=== PATIENT | female | born 1940 | race African-American/Black ===

== ENCOUNTER 2016-11-22 04:18 | Inpatient (IN) | payer MEDICARE, MEDICAID ==
[2016-11-22] MEDS ORDERED: ACETAMINOPHEN SOLN 325 MG/10.15 ML UDCUP PO ONE (05:26)
[2016-11-22 05:30] LABS: AMORPHOUS SEDIMENT,URINE TRACE /HPF; APPEARANCE,URINE CLOUDY; BILIRUBIN,URINE NEGATIVE (NEGATIVE); GLUCOSE, URINE NEGATIVE (NEGATIVE); KETONES,URINE TRACE mg/dL (NEGATIVE); LEUKOCYTE ESTERASE,URINE NEGATIVE (NEGATIVE); NITRITE,URINE NEGATIVE (NEGATIVE); PROTEIN,URINE 30 mg/dL (NEGATIVE); URINE SPECIFIC GRAVITY 1.028
[2016-11-22 05:34] LABS: ABSOLUTE BASOPHILS # (AUTO) 0.1 10^3/uL (0.0-0.2); ABSOLUTE EOSINOPHILS # (AUTO) 0.1 10^3/uL (0.0-0.6); ABSOLUTE LYMPHOCYTES (AUTO) 3.7 10^3/uL (0.5-4.7); ABSOLUTE MONOCYTES (AUTO) 0.8 10^3/uL (0.1-1.4); ABSOLUTE NEUT (AUTO) 3.8 10^3/uL (1.7-8.2); BASOPHILS % (AUTO) 1.2 % (0-2); EOSINOPHILS % (AUTO) 0.7 % (0-6); HEMATOCRIT 48.5 % (36.0-47.0); HEMOGLOBIN 15.8 g/dL (12.0-15.5); HGB HCT DIFFERENCE -1.1; LYMPHOCYTES % (AUTO) 43.9 % (13-45); MEAN CORPUSCULAR HEMOGLOBIN 30.2 pg (27.0-33.4); MEAN CORPUSCULAR HGB CONC 32.5 g/dL (32.0-36.0); MEAN CORPUSCULAR VOLUME 93 fl (80-97); RED BLOOD COUNT 5.21 10^6/uL (3.72-5.28); RED CELL DISTRIBUTION WIDTH 13.9 % (11.5-14.0); SEGMENTED NEUTROPHILS % (AUTO) 44.2 % (42-78); WHITE BLOOD COUNT 8.5 10^3/uL (4.0-10.5)
[2016-11-22] MEDS ORDERED: VANCOMYCIN HCL INJ 1000 MG VIAL IV ONE (05:36)
[2016-11-22] MEDS ORDERED: NORMAL SALINE 1000 ML 1,000 ML IV ONE (05:36)
[2016-11-22] MEDS ORDERED: LEVOFLOXACIN 750 MG/D5W RTU 150 ML IV ONE (05:36)
--- NOTE | 2016-11-22 05:41 | ER Document Report ---
Doctor's Note Notes: 11/22/16 05:37 I performed a quick triage evaluation of the patient. Patient is a 76-year-old female who presents with fever. Daughter is at bedside. Patient says correction. Daughter says the patient was sinus UTI several days ago. According to the correction paperwork she is on Cipro and a cephalosporin. Daughter says that she's been more swollen than usual. She start having fevers yesterday. Fever became worse today just are becoming tachycardic and therefore they sent her to the ER. Daughter denies any previous history of decubitus ulcers. Daughter says she does not speak at baseline. She has severe dementia. She is a DO NOT RESUSCITATE. She does have feeding tube. No other complaints at this time. On exam patient is very dry appearing. Septic appearing. She is tachycardic. I will initiate septic workup. I will start her off on vancomycin and Levaquin until source of fever becomes more obvious. I will give her IV bolus of normal saline. We will do a neck check. She's been given Tylenol for fever. Dictation of this chart was performed using voice recognition software; therefore, there may be some unintended grammatical errors. 11/22/16 05:40
--- NOTE | 2016-11-22 06:35 | ER Document Report ---
ED Fever - General Chief Complaint: Fever Stated Complaint: RESPIRATORY DISTRESS Mode of Arrival: Medic Information source: Relative Cannot obtain history due to: Dementia Notes: This is a 76-year-old female resident of retirement who was brought by EMS for fever. History is obtained from the daughter. Patient has a history of end -stage dementia and is nonverbal. Daughter states that she has been treated for a UTI for the past few days with Cipro and a cephalosporin. Fever increased today and patient was noted to be tachypneic. She was evaluated initially by the night ER provider Dr. Mandujano and a septic workup was begun as well as IV fluids and IV antibiotics. The daughter is understanding that the patient is seriously ill, and the daughter does confirm that the patient is a DO NOT RESUSCITATE. TRAVEL OUTSIDE OF THE [place] IN LAST 30 DAYS: No - Related Data Allergies/Adverse Reactions: Penicillins Allergy (Verified 11/22/16 05:07) Home Medications: Current Home Medications Acetaminophen [Tylenol 650 mg Supp] 650 mg WI Q4HP PRN 11/22/16 [History] Albuterol Sulfate [Ventolin 0.083% Neb 2.5 mg/3 ml Ampul] 1 vial NEB Q8HP PRN [History] Bisacodyl [Dulcolax 10 mg Supp.rect] 10 mg WI DAILYP PRN 11/22/16 [History] Brimonidine Tartrate [Alphagan P] 1 drop OU BID 11/22/16 [History] Cefuroxime Axetil [Ceftin 500 mg Tablet] 1 tab PEG BID 11/22/16 [History] Diabetasource 40 ml PEG Q1H 11/22/16 [History] Insulin Lispro [Humalog Insulin 100 Unit/1 ml 3 ml Vial] 0 unit SUBCUT .SLD SCALE 11/22/16 [History] Ipratropium/Albuterol Sulfate [Duoneb 3 ml Ampul] 3 ml NEB RTQ4HP PRN 11/22/16 [ History] Magnesium Hydroxide [Milk of Magnesia 30 ml Udcup] 30 ml PEG PRN PRN 11/22/16 [ History] Metformin HCl [Glucophage] 500 mg PEG QAM 11/22/16 [History] Na Phos,M-B/Na Phos,Di-Ba [Fleet Enema (Adult) 133 ml] 1 applic WI DAILYP PRN [History] Olopatadine HCl [Pataday] 1 drop OS DAILY 11/22/16 [History] Past Medical History - General Information source: Relative, Emergency Med Personnel Cannot obtain history due to: Dementia - Social History Smoking Status: Unknown if Ever Smoked Chew tobacco use (# tins/day): No Frequency of alcohol use: None Drug Abuse: None Family History: Reviewed & Not Pertinent Patient has suicidal ideation: No Patient has homicidal ideation: No - Past Medical History Cardiac Medical History: Reports: Hx Coronary Artery Disease, Hx Hypercholesterolemia, Hx Hypertension Endocrine Medical History: Reports: Hx Diabetes Mellitus Type 2 Renal/ Medical History: Denies: Hx Peritoneal Dialysis Past Surgical History: Reports: Hx Abdominal Surgery - PEG, Hx Cardiac Catheterization - Open heart surgery (quadruple bypass), Hx Coronary Artery Bypass Graft - Immunizations Hx Diphtheria, Pertussis, Tetanus Vaccination: Yes Review of Systems - Review of Systems -: Yes ROS unobtainable due to patient's medical condition Physical Exam - Vital signs Vitals: Pulse Ox 100 11/22/16 04:25 - Notes Notes: PHYSICAL EXAMINATION: GENERAL: ill appearing elderly female, tachypneic, responsive only to sternal rub, nonverbal at baseline HEAD: Atraumatic, normocephalic. EYES: Pupils equal round and sluggishly reactive to light ENT: nares patent, oropharynx clear without exudates. Mucous membranes dry NECK: no lymphadenopathy LUNGS: Breath sounds clear to auscultation bilaterally and equal. No wheezes rales or rhonchi. HEART: Tachycardic, regular rate, no murmur appreciated ABDOMEN: Soft, nontender, normoactive bowel sounds. No guarding, no rebound. No masses appreciated. PEG tube site clean dry and intact. EXTREMITIES: 1+ bilateral lower extremity edema. NEUROLOGICAL: Patient is minimally responsive and unable to complete her neuro exam. There are no obvious focal deficits. SKIN: no rashes or lesions noted. Course - Re-evaluation Re-evalutation: 11/22/16 07:34 Lab results and chest x-ray results reviewed with daughter. We again discussed the fact that the patient is critically ill and septic. She is being treated with IV fluids and antibiotics, and we will admit to the hospitalist. Daughter understands grave prognosis and all questions are answered. - Vital Signs Vital signs: Temp Pulse Resp BP Pulse Ox 101.8 F H 116 H 0 L 132/66 H 100 11/22/16 07:20 11/22/16 04:53 11/22/16 06:48 11/22/16 06:48 11/22/16 06:48 - Laboratory Result Diagrams: 11/22/16 05:19 11/22/16 06:11 Laboratory results interpreted by me: 11/22/16 11/22/16 11/22/16 04:34 04:41 05:19 Hgb 15.8 H Hct 48.5 H Sodium Carbon Dioxide BUN Creatinine Glucose POC Glucose 226 H Lactic Acid AST Albumin Urine Protein 30 H Urine Ketones TRACE H Urine Urobilinogen 4.0 H Urine Ascorbic Acid 40 H 11/22/16 11/22/16 06:11 06:11 Hgb Hct Sodium 154.6 H Carbon Dioxide 39 H BUN 37 H Creatinine 0.41 L Glucose 225 H POC Glucose Lactic Acid 3.4 H AST 53 H Albumin 3.3 L Urine Protein Urine Ketones Urine Urobilinogen Urine Ascorbic Acid - Diagnostic Test Radiology reviewed: Image reviewed - No consolidation, Reports reviewed - EKG Interpretation by Me EKG shows normal: Sinus rhythm Rate: Tachycardia Additional EKG results interpreted by me: 11/22/16 07:36 Incomplete right bundle-branch block. No significant change from prior EKG Discharge - Discharge Clinical Impression: Elevated troponin level, DNR (do not resuscitate), Hypernatremia Sepsis Qualifiers: Sepsis type: sepsis due to unspecified organism Qualified Code(s): A41.9 - Sepsis, unspecified organism Condition: Critical Disposition: ADMITTED INPATIENT Admitting Provider: Hospitalist - Dr Green Unit Admitted: Medical Floor
[2016-11-22 06:48] LABS: ALANINE AMINOTRANSFERASE 25 U/L (9-52); ALBUMIN 3.3 g/dL (3.5-5.0); ALKALINE PHOSPHATASE 53 U/L (38-126); ASPARTATE AMINO TRANSFERASE 53 U/L (14-36); BILIRUBIN,TOTAL 0.9 mg/dL (0.2-1.3); BLOOD UREA NITROGEN 37 mg/dL (7-20); CALCIUM 9.7 mg/dL (8.4-10.2); CHLORIDE 104 mmol/L (98-107); CREATINE KINASE 39 U/L (30-135); CREATININE RESULT 0.41 mg/dL (0.52-1.25); GLUCOSE 225 mg/dL (75-110); POTASSIUM 3.6 mmol/L (3.6-5.0); SODIUM 154.6 mmol/L (137-145); TOTAL PROTEIN 7.9 g/dL (6.3-8.2)
[2016-11-22 07:01] LABS: ANION GAP 12 (5-19); CREATINE KINASE MB 0.71 ng/mL (<4.55)
[2016-11-22 07:03] LABS: CARBON DIOXIDE 39 mmol/L (22-30)
[2016-11-22 07:05] LABS: TROPONIN I 0.126 ng/mL
[2016-11-22] MEDS ORDERED: ACETAMINOPHEN 650 MG SUPP.RECT PR ONE (07:38)
[2016-11-22] MEDS ORDERED: 1/2 NORMAL SALINE 1,000 ML IV PRN (08:21)
[2016-11-22] MEDS ORDERED: IBUPROFEN 600 MG TABLET PEG ONE (08:22)
--- NOTE | 2016-11-22 08:33 | PDOC H&P ---
History of Present Illness Admission Date/PCP: AKHIL ULRICH Patient complains of: fever SOB History of Present Illness: BEV URBAN is a 76 year old female resident of [facility] who was brought by EMS for fever. History is obtained from the daughter. 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 Daughter states that she has been treated for a UTI for the past few days with Cipro and a cephalosporin. Fever increased today and patient was noted to be tachypneic. She was evaluated initially by the night ER provider Dr. Mandujano and a septic workup was begun as well as IV fluids and IV antibiotics. The daughter is understanding that the patient is seriously ill, and the daughter does confirm that the patient is a DO NOT RESUSCITATE. Upon evaluation in the ED patient was diagnosed urinary tract infection, severe dehydration, hypernatremia She had on 11/13 urine culture and sensitivity positive for Proteus mirabilis sensitive to cefotaxime Patient was subsequently admitted to telemetry unit under hospitalist service for further evaluation and care Past Medical History Cardiac Medical History: Reports: Coronary Artery Disease, Hyperlipidema, Hypertension Endocrine Medical History: Reports: Diabetes Mellitus Type 2 Past Surgical History Past Surgical History: Reports: Cardiac Catheterization - Open heart surgery ( quadruple bypass), Coronary Artery Bypass Graft Social History Smoking Status: Unknown if Ever Smoked Hx Recreational Drug Use: No Hx Prescription Drug Abuse: No - Advance Directive Resuscitation Status: Do Not Resuscitate Surrogate healthcare decision maker:: daughter Yumiko Family History Family History: Reviewed & Not Pertinent, Other - Health status sibling and parents unknown Parental Family History Reviewed: Yes Children Family History Reviewed: Yes Sibling(s) Family History Reviewed.: Yes Medication/Allergy Home Medications: Amlodipine Besylate [Norvasc 5 mg Tablet] 5 mg PEG DAILY 02/23/13 Ascorbic Acid [Vitamin C] 500 mg PEG BID 02/23/13 Aspirin [Aspirin 81 mg Chewable Tablet] 81 mg PEG DAILY 02/23/13 Timolol Maleate [Timoptic 0.5% Oph Soln 5 ml] 1 drop OU BID 06/13/15 Latanoprost 1 drop OU QHS 06/14/15 Insulin Detemir [Levemir Insulin 100 units/mL] 15 unit SUBCUT Q12 #0 insuln.pen 06/17/15 Polyethylene Glycol 3350 [Miralax Powder 17 gm/Packet] 17 gm PO DAILY #0 powd.pack 06/17/15 Acetaminophen [Tylenol 650 mg Supp] 650 mg PA Q4HP PRN 11/22/16 Albuterol Sulfate [Ventolin 0.083% Neb 2.5 mg/3 ml Ampul] 1 vial NEB Q8HP PRN Bisacodyl [Dulcolax 10 mg Supp.rect] 10 mg PA DAILYP PRN 11/22/16 Brimonidine Tartrate [Alphagan P] 1 drop OU BID 11/22/16 Cefuroxime Axetil [Ceftin 500 mg Tablet] 1 tab PEG BID 11/22/16 Diabetasource 40 ml PEG Q1H 11/22/16 Insulin Lispro [Humalog Insulin 100 Unit/1 ml 3 ml Vial] 0 unit SUBCUT .SLD SCALE 11/22/16 Ipratropium/Albuterol Sulfate [Duoneb 3 ml Ampul] 3 ml NEB RTQ4HP PRN 11/22/16 Magnesium Hydroxide [Milk of Magnesia 30 ml Udcup] 30 ml PEG PRN PRN 11/22/16 Metformin HCl [Glucophage] 500 mg PEG QAM 11/22/16 Na Phos,M-B/Na Phos,Di-Ba [Fleet Enema (Adult) 133 ml] 1 applic PA DAILYP PRN Olopatadine HCl [Pataday] 1 drop OS DAILY 11/22/16 Allergies/Adverse Reactions: Penicillins Allergy (Verified 11/22/16 05:07) Review of Systems ROS unobtainable: Due to mental status - Patient is obtunded and does not answer questions Daughter states that she has not been verbal now for 2-3 years Physical Exam Vital Signs: Temp Pulse Resp BP Pulse Ox 101.8 F H 116 H 0 L 132/66 H 100 11/22/16 07:20 11/22/16 04:53 11/22/16 06:48 11/22/16 06:48 11/22/16 06:48 Intake & Output 11/21/16 11/22/16 11/23/16 00:59 00:59 00:59 Weight 68.13 kg General appearance: PRESENT: mild distress, well-nourished Head exam: PRESENT: atraumatic, normocephalic Eye exam: PRESENT: conjunctiva pink, EOMI, PERRLA. ABSENT: scleral icterus Neck exam: ABSENT: carotid bruit, JVD, lymphadenopathy, thyromegaly Respiratory exam: PRESENT: decreased breath sounds, rhonchi. ABSENT: accessory muscle use Cardiovascular exam: PRESENT: RRR, tachycardia. ABSENT: diastolic murmur, systolic murmur Pulses: PRESENT: normal dorsalis pedis pul GI/Abdominal exam: PRESENT: normal bowel sounds, soft. ABSENT: distended, guarding, mass, organolmegaly, rebound, tenderness Extremities exam: PRESENT: full ROM. ABSENT: calf tenderness, clubbing, pedal edema Neurological exam: PRESENT: altered, other - Not responding to even deep painful stimuli Results Laboratory Results: 11/22/16 05:19 11/22/16 06:11 11/22/16 11/22/16 11/22/16 04:34 05:19 05:19 WBC 8.5 RBC 5.21 Hgb 15.8 H Hct 48.5 H MCV 93 MCH 30.2 MCHC 32.5 RDW 13.9 Plt Count 192 Seg Neutrophils % 44.2 Lymphocytes % 43.9 Monocytes % 10.0 Eosinophils % 0.7 Basophils % 1.2 Absolute Neutrophils 3.8 Absolute Lymphocytes 3.7 Absolute Monocytes 0.8 Absolute Eosinophils 0.1 Absolute Basophils 0.1 Sodium Cancelled Potassium Cancelled Chloride Cancelled Carbon Dioxide Cancelled Anion Gap Cancelled BUN Cancelled Creatinine Cancelled Est GFR ( Amer) Cancelled Est GFR (Non-Af Amer) Cancelled Glucose Cancelled Lactic Acid Calcium Cancelled Total Bilirubin Cancelled AST Cancelled ALT Cancelled Alkaline Phosphatase Cancelled Total Protein Cancelled Albumin Cancelled Urine Color YELLOW Urine Appearance CLOUDY Urine pH 5.0 Ur Specific [place] 1.028 Urine Protein 30 H Urine Glucose (UA) NEGATIVE Urine Ketones TRACE H Urine Blood NEGATIVE Urine Nitrite NEGATIVE Ur Leukocyte Esterase NEGATIVE Urine WBC (Auto) 1 Urine RBC (Auto) 0 11/22/16 11/22/16 06:11 06:11 WBC RBC Hgb Hct MCV MCH MCHC RDW Plt Count Seg Neutrophils % Lymphocytes % Monocytes % Eosinophils % Basophils % Absolute Neutrophils Absolute Lymphocytes Absolute Monocytes Absolute Eosinophils Absolute Basophils Sodium 154.6 H Potassium 3.6 Chloride 104 Carbon Dioxide 39 H Anion Gap 12 BUN 37 H Creatinine 0.41 L Est GFR ( Amer) > 60 Est GFR (Non-Af Amer) > 60 Glucose 225 H Lactic Acid 3.4 H Calcium 9.7 Total Bilirubin 0.9 AST 53 H ALT 25 Alkaline Phosphatase 53 Total Protein 7.9 Albumin 3.3 L Urine Color Urine Appearance Urine pH Ur Specific [place] Urine Protein Urine Glucose (UA) Urine Ketones Urine Blood Urine Nitrite Ur Leukocyte Esterase Urine WBC (Auto) Urine RBC (Auto) 11/22/16 11/22/16 11/22/16 05:19 05:19 06:11 Creatine Kinase Cancelled 39 CK-MB (CK-2) Cancelled Troponin I Cancelled 11/22/16 06:11 Creatine Kinase CK-MB (CK-2) 0.71 Troponin I 0.126 11/15/16 12:50 Urine Culture - Final Catheterized Urine Proteus Mirabilis Impressions: Chest X-Ray 11/22/16 04:51 IMPRESSION: NO ACUTE RADIOGRAPHIC FINDING IN THE CHEST. Assessment & Plan - Diagnosis (1) UTI (urinary tract infection) Is this a current diagnosis for this admission?: YesPlan: We will treat the patient with ceftaz at time which has the lowest NEISHA of 1 Fluid resuscitation continued Townsend catheter will be inserted (2) DNR (do not resuscitate) Is this a current diagnosis for this admission?: YesPlan: Patient's daughter wishes her mother to be treated aggressively But she is DNR/DNI (3) Sepsis Qualifiers: Sepsis type: sepsis due to unspecified organism Qualified Code(s): A41.9 - Sepsis, unspecified organism Is this a current diagnosis for this admission?: YesPlan: Septic secondary to UTI Treat with ceftazidime as above (5) Type II diabetes mellitus, uncontrolled Qualifiers: Diabetes mellitus complication status: with unspecified complications Is this a current diagnosis for this admission?: YesPlan: Will treat patient with his Accu-Chek before meals at bedtime and lispro coverage (6) Alzheimer's dementia Is this a current diagnosis for this admission?: YesPlan: . Advanced dementia Patient is nonverbal, bedridden incontinent, (7) G tube feedings Is this a current diagnosis for this admission?: YesPlan: We will be held today Resume in 24-48 hrs if patient's condition improved - Time Time Spent: 50 to 70 Minutes
[2016-11-22] MEDS ORDERED: DEXTROSE 40% GEL 15 GM TUBE PO PRN ×2 (08:41)
[2016-11-22] MEDS ORDERED: DEXTROSE 50%-WATER 25 GM/50 ML DISP.SYRIN IV PRN ×2 (08:41)
[2016-11-22] MEDS ORDERED: GLUCAGON,HUMAN RECOMB 1 MG INJ IM PRN (08:41)
[2016-11-22] MEDS ORDERED: CEFTAZIDIME PENTAHYDRATE 1 GM in DEXTROSE 5%-WATER 50 ML IV SCH (10:00)
--- NOTE | 2016-11-22 10:35 | EKG REPORT ---
SEVERITY:- ABNORMAL ECG - SINUS TACHYCARDIA MULTIPLE VENTRICULAR PREMATURE COMPLEXES IRBBB AND LPFB ST DEPRESSION, CONSIDER ISCHEMIA, ANT LEADS : Confirmed by: Jocelin Gonzalez 22-Nov-2016 10:34:33
--- NOTE | 2016-11-22 10:36 | Operative Report ---
Operative Report DATE OF SURGERY: 11/22/16 PREOPERATIVE DIAGNOSIS: Need for central vein access. POSTOPERATIVE DIAGNOSIS: Need for central vein access. OPERATION: Right internal jugular vein central venous line placement with ultrasound guidance SURGEON: RUSLAN PAULA ANESTHESIA: Local TISSUE REMOVED OR ALTERED: None COMPLICATIONS: None noted ESTIMATED BLOOD LOSS: minimal INTRAOPERATIVE FINDINGS: Right common carotid artery and right internal jugular vein in the normal position. Internal jugular vein was very flat even in the severe Trendelenburg indicating significant dehydration. PROCEDURE: Timeout was performed. The patient was prepped and draped in normal sterile fashion. Ultrasound was used to identify the right internal jugular vein and right common carotid artery. The skin over the vein was infiltrated with local anesthetic. An 11 blade scalpel was used to make a skin geovanni. Under ultrasound guidance, a Cook needle was used to cannulate the right internal jugular vein with return of nonpulsatile dark red venous blood. Initially the guidewire which comes in the 7 [place]oan triple-lumen central line kit was used and did not thread successfully. Then a 0.035 Glidewire was used which was successfully placed. Seldinger technique was used. The Cook needle was removed. The tract was dilated. Catheter was placed over the guidewire. The guidewire was removed. All lumens easily aspirated and flushed. The catheter was sewn in place at the skin and at the end hub. A Biopatch was placed. A sterile dressing was placed. All sharps were accounted for and disposed of properly. The patient tolerated the procedure well. A chest x-ray was performed which showed central venous line in the proper position and no pneumothorax.
[2016-11-22 17:04] LABS: PROTHROMBIN TIME 14.1 SEC (11.4-15.4)
[2016-11-22 17:14] LABS: ANION GAP 8 (5-19); BLOOD UREA NITROGEN 32 mg/dL (7-20); CALCIUM 8.6 mg/dL (8.4-10.2); CARBON DIOXIDE 39 mmol/L (22-30); CHLORIDE 104 mmol/L (98-107); CREATININE RESULT 0.48 mg/dL (0.52-1.25); GLUCOSE 178 mg/dL (75-110); SODIUM 150.5 mmol/L (137-145)
[2016-11-22 17:30] LABS: POTASSIUM 2.9 mmol/L (3.6-5.0)
[2016-11-22] MEDS ORDERED: NORMAL SALINE 1000 ML 1,000 ML IV PRN (17:37)
[2016-11-22] MEDS ORDERED: POTASSI CL 20 MEQ/50 ML RIDER 20 MEQ/50 ML RTUPB IV SCH (17:45)
[2016-11-22] MEDS ORDERED: POTASSI CL 20 MEQ/50 ML RIDER 20 MEQ/50 ML RTUPB IV ONE (18:37)
[2016-11-22] MEDS: PANTOPRAZOLE SODIUM 40 MG VIAL IV SCH ×2 (20:17→21:12)
[2016-11-22] MEDS: NORMAL SALINE 1000 ML 1,000 ML IV PRN (21:25)
[2016-11-22 21:37] LABS: VENOUS BLOOD BASE EXCESS 9.7 mmol/L; VENOUS BLOOD HCO3 37.4 mmol/L (20-32); VENOUS BLOOD PH 7.37 (7.30-7.42)
[2016-11-22 21:43] LABS: VENOUS BLOOD PCO2 66.4 mmHg (35-63)
[2016-11-22 21:58] LABS: ANION GAP 6 (5-19); BLOOD UREA NITROGEN 30 mg/dL (7-20); CALCIUM 8.3 mg/dL (8.4-10.2); CARBON DIOXIDE 37 mmol/L (22-30); CHLORIDE 105 mmol/L (98-107); CREATININE RESULT 0.42 mg/dL (0.52-1.25); GLUCOSE 131 mg/dL (75-110); POTASSIUM 3.2 mmol/L (3.6-5.0); SODIUM 148.3 mmol/L (137-145)
[2016-11-23] MEDS: CEFTAZIDIME PENTAHYDRATE 1 GM in DEXTROSE 5%-WATER 50 ML IV SCH ×3 (02:40→18:16)
[2016-11-23] MEDS: NORMAL SALINE 1000 ML 1,000 ML IV PRN (05:53)
[2016-11-23 06:21] LABS: ABSOLUTE EOSINOPHILS # (AUTO) 0.2 10^3/uL (0.0-0.6); ABSOLUTE LYMPHOCYTES (AUTO) 2.4 10^3/uL (0.5-4.7); ABSOLUTE MONOCYTES (AUTO) 0.6 10^3/uL (0.1-1.4); ABSOLUTE NEUT (AUTO) 5.2 10^3/uL (1.7-8.2); BASOPHILS % (AUTO) 0.3 % (0-2); EOSINOPHILS % (AUTO) 1.9 % (0-6); HEMATOCRIT 34.8 % (36.0-47.0); HGB HCT DIFFERENCE -0.3; LYMPHOCYTES % (AUTO) 28.9 % (13-45); MEAN CORPUSCULAR HEMOGLOBIN 31.1 pg (27.0-33.4); MEAN CORPUSCULAR HGB CONC 33.2 g/dL (32.0-36.0); MEAN CORPUSCULAR VOLUME 94 fl (80-97); MONOCYTES % (AUTO) 7.4 % (3-13); RED BLOOD COUNT 3.71 10^6/uL (3.72-5.28); RED CELL DISTRIBUTION WIDTH 13.8 % (11.5-14.0); SEGMENTED NEUTROPHILS % (AUTO) 61.5 % (42-78); WHITE BLOOD COUNT 8.4 10^3/uL (4.0-10.5)
[2016-11-23 06:23] LABS: HEMOGLOBIN 11.5 g/dL (12.0-15.5)
[2016-11-23 06:28] LABS: ANION GAP 6 (5-19); BLOOD UREA NITROGEN 27 mg/dL (7-20); CALCIUM 7.9 mg/dL (8.4-10.2); CARBON DIOXIDE 36 mmol/L (22-30); CHLORIDE 107 mmol/L (98-107); CREATININE RESULT 0.43 mg/dL (0.52-1.25); GLUCOSE 160 mg/dL (75-110); SODIUM 149.2 mmol/L (137-145)
[2016-11-23 08:45] LABS: ANION GAP 6 (5-19); BLOOD UREA NITROGEN 25 mg/dL (7-20); CALCIUM 7.9 mg/dL (8.4-10.2); CARBON DIOXIDE 36 mmol/L (22-30); CHLORIDE 107 mmol/L (98-107); CREATININE RESULT 0.38 mg/dL (0.52-1.25); GLUCOSE 164 mg/dL (75-110); POTASSIUM 3.1 mmol/L (3.6-5.0); SODIUM 149.1 mmol/L (137-145)
[2016-11-23] MEDS: PANTOPRAZOLE SODIUM 40 MG VIAL IV SCH ×2 (09:43→22:18)
[2016-11-23] MEDS ORDERED: POTASSI CL 20 MEQ/50 ML RIDER 50 ML IV SCH (11:30)
--- NOTE | 2016-11-23 19:31 | PDOC PROGRESS REPORT ---
Subjective Progress Note for:: 11/23/16 Subjective:: Patient is very much improved today She is opening her eyes ; seems to be watching TV She is not verbal It is according to the daughter her baseline Tube feedings were initiated Sodium is coming down, and sepsis is resolving Physical Exam Vital Signs: Temp Pulse Resp BP Pulse Ox 97.3 F 70 24 H 117/85 100 11/23/16 15:22 11/23/16 15:22 11/23/16 15:22 11/23/16 15:22 11/23/16 15:22 Intake & Output 11/22/16 11/23/16 11/24/16 00:59 00:59 00:59 Intake Total 330 Output Total 200 800 Balance -200 -470 Weight 68.13 kg General appearance: PRESENT: no acute distress, well-nourished Head exam: PRESENT: atraumatic, normocephalic Eye exam: PRESENT: conjunctiva pink, EOMI, PERRLA. ABSENT: scleral icterus Respiratory exam: PRESENT: clear to auscultation felipe. ABSENT: rales, rhonchi, wheezes Cardiovascular exam: PRESENT: RRR. ABSENT: diastolic murmur, rubs, systolic murmur Musculoskeletal exam: PRESENT: full ROM Neurological exam: PRESENT: awake Skin exam: PRESENT: dry, intact, warm. ABSENT: cyanosis, rash Results Laboratory Results: 11/23/16 04:10 11/23/16 07:48 11/22/16 11/22/16 11/22/16 16:35 21:15 21:15 WBC RBC Hgb Hct MCV MCH MCHC RDW Plt Count Seg Neutrophils % Lymphocytes % Monocytes % Eosinophils % Basophils % Absolute Neutrophils Absolute Lymphocytes Absolute Monocytes Absolute Eosinophils Absolute Basophils VBG pH 7.37 VBG pCO2 66.4 H* VBG HCO3 37.4 H VBG Base Excess 9.7 Sodium 148.3 H Potassium 3.2 L Chloride 105 Carbon Dioxide 37 H Anion Gap 6 BUN 30 H Creatinine 0.42 L Est GFR ( Amer) > 60 Est GFR (Non-Af Amer) > 60 Glucose 131 H Calcium 8.3 L Magnesium 2.0 TSH 11/23/16 11/23/16 11/23/16 04:10 04:10 04:10 WBC 8.4 RBC 3.71 L Hgb 11.5 L D Hct 34.8 L MCV 94 MCH 31.1 MCHC 33.2 RDW 13.8 Plt Count 136 L Seg Neutrophils % 61.5 Lymphocytes % 28.9 Monocytes % 7.4 Eosinophils % 1.9 Basophils % 0.3 Absolute Neutrophils 5.2 Absolute Lymphocytes 2.4 Absolute Monocytes 0.6 Absolute Eosinophils 0.2 Absolute Basophils 0.0 VBG pH VBG pCO2 VBG HCO3 VBG Base Excess Sodium 149.2 H Potassium 3.0 L* Chloride 107 Carbon Dioxide 36 H Anion Gap 6 BUN 27 H Creatinine 0.43 L Est GFR ( Amer) > 60 Est GFR (Non-Af Amer) > 60 Glucose 160 H Calcium 7.9 L Magnesium TSH 1.99 11/23/16 07:48 WBC RBC Hgb Hct MCV MCH MCHC RDW Plt Count Seg Neutrophils % Lymphocytes % Monocytes % Eosinophils % Basophils % Absolute Neutrophils Absolute Lymphocytes Absolute Monocytes Absolute Eosinophils Absolute Basophils VBG pH VBG pCO2 VBG HCO3 VBG Base Excess Sodium 149.1 H Potassium 3.1 L Chloride 107 Carbon Dioxide 36 H Anion Gap 6 BUN 25 H Creatinine 0.38 L Est GFR ( Amer) > 60 Est GFR (Non-Af Amer) > 60 Glucose 164 H Calcium 7.9 L Magnesium TSH Impressions: Chest X-Ray 11/22/16 04:51 IMPRESSION: NO ACUTE RADIOGRAPHIC FINDING IN THE CHEST. Assessment & Plan - Diagnosis (1) UTI (urinary tract infection) Qualifiers: Urinary tract infection type: site unspecified Is this a current diagnosis for this admission?: YesPlan: 11/23/16 04:10 Sodium 149.2 H 11/15/16 12:50 Urine Culture - Final Catheterized Urine Proteus Mirabilis Protein is sensitive to ceftazidime Continue IV antibiotics (2) DNR (do not resuscitate) Is this a current diagnosis for this admission?: Yes (3) Sepsis Qualifiers: Sepsis type: sepsis due to unspecified organism Qualified Code(s): A41.9 - Sepsis, unspecified organism Is this a current diagnosis for this admission?: YesPlan: Secondary to UTI ; continue antibiotics Patient is hemodynamically stable She was extremely dehydrated on admission with hypernatremia (4) Hypernatremia Is this a current diagnosis for this admission?: YesPlan: Secondary to lack of free water We increased the water flushes to 100 mL every 4 hours Patient was admitted with extreme dehydration and hypernatremia Enough free water should be provided with water flushes at discharge hypernatremia is being corrected slowly (5) Type II diabetes mellitus, uncontrolled Qualifiers: Diabetes mellitus complication status: with unspecified complications Is this a current diagnosis for this admission?: YesPlan: continue coverage (6) Alzheimer's dementia Is this a current diagnosis for this admission?: Yes (7) G tube feedings Is this a current diagnosis for this admission?: YesPlan: as precribed continue prior tube feedings - Time Time Spent with patient: 25-34 minutes Within: within 48 hours
[2016-11-24] MEDS: 1/2 NORMAL SALINE 1,000 ML IV PRN (01:40)
[2016-11-24] MEDS: CEFTAZIDIME PENTAHYDRATE 1 GM in DEXTROSE 5%-WATER 50 ML IV SCH ×3 (01:43→22:28)
[2016-11-24] MEDS: INSULIN REG, HUMAN 100 UNIT/ML 3 ML VIAL (PYX) SUBCUT PRN ×3 (01:55→22:28)
[2016-11-24] MEDS: NORMAL SALINE INJ/PF 0.9% 10 ML SDV IV PRN (05:07)
[2016-11-24 05:22] LABS: ABSOLUTE EOSINOPHILS # (AUTO) 0.2 10^3/uL (0.0-0.6); ABSOLUTE LYMPHOCYTES (AUTO) 1.4 10^3/uL (0.5-4.7); ABSOLUTE MONOCYTES (AUTO) 0.6 10^3/uL (0.1-1.4); ABSOLUTE NEUT (AUTO) 3.7 10^3/uL (1.7-8.2); BASOPHILS % (AUTO) 0.4 % (0-2); EOSINOPHILS % (AUTO) 2.9 % (0-6); HEMATOCRIT 32.4 % (36.0-47.0); HGB HCT DIFFERENCE 0.6; LYMPHOCYTES % (AUTO) 23.7 % (13-45); MEAN CORPUSCULAR HEMOGLOBIN 31.3 pg (27.0-33.4); MEAN CORPUSCULAR HGB CONC 33.9 g/dL (32.0-36.0); MEAN CORPUSCULAR VOLUME 92 fl (80-97); MONOCYTES % (AUTO) 10.9 % (3-13); RED CELL DISTRIBUTION WIDTH 13.3 % (11.5-14.0); SEGMENTED NEUTROPHILS % (AUTO) 62.1 % (42-78); WHITE BLOOD COUNT 5.9 10^3/uL (4.0-10.5)
[2016-11-24 05:25] LABS: VENOUS BLOOD BASE EXCESS -5.9 mmol/L; VENOUS BLOOD HCO3 18.5 mmol/L (20-32); VENOUS BLOOD PCO2 31.5 mmHg (35-63); VENOUS BLOOD PH 7.39 (7.30-7.42)
[2016-11-24 05:39] LABS: ANION GAP 5 (5-19); BLOOD UREA NITROGEN 17 mg/dL (7-20); CALCIUM 7.5 mg/dL (8.4-10.2); CARBON DIOXIDE 34 mmol/L (22-30); CHLORIDE 109 mmol/L (98-107); CREATININE RESULT 0.35 mg/dL (0.52-1.25); GLUCOSE 272 mg/dL (75-110); SODIUM 148.2 mmol/L (137-145)
[2016-11-24] MEDS: POTASSI CL 20 MEQ/50 ML RIDER 20 MEQ/50 ML RTUPB IV SCH ×2 (06:37→11:34)
[2016-11-24] MEDS: PANTOPRAZOLE SODIUM 40 MG VIAL IV SCH ×2 (11:35→22:29)
--- NOTE | 2016-11-24 17:08 | PDOC PROGRESS REPORT ---
Subjective Progress Note for:: 11/24/16 Subjective:: Reason for visit: Follow-up acute metabolic encephalopathy, hypernatremia, possible UTI Hospital course: Per H&P "BEV URBAN is a 76 year old female resident of [facility] who was brought by EMS for fever. History is obtained from the daughter. 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 Daughter states that she has been treated for a UTI for the past few days with Cipro and a cephalosporin. Fever increased today and patient was noted to be tachypneic. She was evaluated initially by the night ER provider Dr. Mandujano and a septic workup was begun as well as IV fluids and IV antibiotics. The daughter is understanding that the patient is seriously ill, and the daughter does confirm that the patient is a DO NOT RESUSCITATE. Upon evaluation in the ED patient was diagnosed urinary tract infection, severe dehydration, hypernatremia She had on 11/13 urine culture and sensitivity positive for Proteus mirabilis sensitive to cefotaxime Patient was subsequently admitted to telemetry unit under hospitalist service for further evaluation and care" She was admitted to the hospital and started on Cefotaxime as noted above, IV fluids and other supportive care and has shown some improvement with the daughter reporting to the physician yesterday she seemed to be close to baseline. Subjective: She is severely demented and nonverbal at baseline, there is no family in the room at present and therefore review of systems is unobtainable. Nurses report no new events overnight. Since admission she has undergone placement of right internal jugular central catheter for venous access without complication. Her blood and urine cultures come back negative from admission. Physical Exam Vital Signs: Temp Pulse Resp BP Pulse Ox 97.8 F 82 16 151/59 H 95 11/24/16 04:01 11/24/16 07:00 11/24/16 04:01 11/24/16 04:01 11/24/16 12:12 Intake & Output 11/23/16 11/24/16 11/25/16 06:59 06:59 06:59 Intake Total 250 2517 Output Total 600 1500 Balance -350 1017 Weight 68.13 kg 74.6 kg EXAM GENERAL: NAD; well developed, well nourished; no obese; alert and opens eyes but is nonverbal and will not follow commands HEENT: normocephalic, atraumatic; no conjunctival injection, no scleral icterus ; oral mucosa dry; RESPIRATORY: no accessory muscle use, no increased WOB, good air entry bilaterally; no wheezes, rales, rhonchi; no inspiratory crackles CARDIO: no JVD; RRR; no systolic murmur; no tachycardia GI: soft; nondistended; normal bowel sounds; no hepato spleno megaly; no rebound, rigidity, guarding; no grimace to palpation VASCULAR: no carotid bruit; no abdominal bruit; no pallor; 2+ radial, DP pulse ; normal capillary refill EXTREMITIES: no palpable cords in calf; no clubbing, cyanosis, pedal edema PSYCH: normal affect, normal mood SKIN: warm; moist; no petechiae; no telengectasias; no jaundice; no rash Results Laboratory Results: 11/24/16 04:50 11/24/16 04:50 11/24/16 11/24/16 11/24/16 04:50 04:50 04:50 WBC 5.9 RBC 3.50 L Hgb 11.0 L Hct 32.4 L MCV 92 MCH 31.3 MCHC 33.9 RDW 13.3 Plt Count 129 L Seg Neutrophils % 62.1 Lymphocytes % 23.7 Monocytes % 10.9 Eosinophils % 2.9 Basophils % 0.4 Absolute Neutrophils 3.7 Absolute Lymphocytes 1.4 Absolute Monocytes 0.6 Absolute Eosinophils 0.2 Absolute Basophils 0.0 VBG pH 7.39 VBG pCO2 31.5 L VBG HCO3 18.5 L VBG Base Excess -5.9 Sodium 148.2 H Potassium 3.0 L* Chloride 109 H Carbon Dioxide 34 H Anion Gap 5 BUN 17 Creatinine 0.35 L Est GFR ( Amer) > 60 Est GFR (Non-Af Amer) > 60 Glucose 272 H Calcium 7.5 L Labs reviewed, serum sodium improving, H&H holding. Potassium remains low. Impressions: Chest X-Ray 11/22/16 04:51 IMPRESSION: NO ACUTE RADIOGRAPHIC FINDING IN THE CHEST. Status: Image reviewed by me - Chest x-rays reviewed including to old ones from last year for comparison and second chest x-ray on this admission shows some stranding at the right base, unclear if technique but could be atelectasis or a faint infiltrate there. Assessment & Plan - Diagnosis (1) Hypernatremia Is this a current diagnosis for this admission?: YesPlan: Patient is G-tube feeding dependent and appeared to be volume depleted on admission with significant hypernatremia contributing to her presentation. This is improved with IV fluids, continuation of G-tube feedings and fluid boluses. Repeat Chem-7 in the morning (2) Acute metabolic encephalopathy Is this a current diagnosis for this admission?: YesPlan: Likely multifactorial with a component of hypernatremia, volume depletion, urinary tract infection in the setting of underlying advanced Alzheimer's dementia and chronic nonverbal state. Await daughter's arrival, we'll need to discuss her current status as it relates to her baseline. (3) Sepsis Qualifiers: Sepsis type: sepsis due to unspecified organism Qualified Code(s): A41.9 - Sepsis, unspecified organism Is this a current diagnosis for this admission?: YesPlan: Likely from the Proteus discovered on urine culture on 11/13/2016. Continue current antibiotics. (4) UTI (urinary tract infection) Qualifiers: Urinary tract infection type: site unspecified Is this a current diagnosis for this admission?: YesPlan: . Complicated UTI. As above. (5) Type II diabetes mellitus, uncontrolled Qualifiers: Diabetes mellitus complication status: with unspecified complications Is this a current diagnosis for this admission?: Yes (6) Alzheimer's dementia Is this a current diagnosis for this admission?: Yes (7) DNR (do not resuscitate) Is this a current diagnosis for this admission?: Yes (8) Hypokalemia Is this a current diagnosis for this admission?: YesPlan: Continue to treat and follow - Time Time Spent with patient: 25-34 minutes Anticipated discharge: SNF Within: within 48 hours - Plan Summary Plan Summary: Hopefully once we get her back to her baseline mental state and her [facility]'s [facility] she could be returned to the [facility] facility when she came.
[2016-11-25] MEDS: 1/2 NORMAL SALINE 1,000 ML IV PRN (00:51)
[2016-11-25] MEDS: CEFTAZIDIME PENTAHYDRATE 1 GM in DEXTROSE 5%-WATER 50 ML IV SCH ×3 (02:27→17:10)
[2016-11-25 06:15] LABS: HEMATOCRIT 34.8 % (36.0-47.0); HEMOGLOBIN 11.7 g/dL (12.0-15.5); HGB HCT DIFFERENCE 0.3; MEAN CORPUSCULAR HEMOGLOBIN 31.2 pg (27.0-33.4); MEAN CORPUSCULAR HGB CONC 33.7 g/dL (32.0-36.0); MEAN CORPUSCULAR VOLUME 92 fl (80-97); RED BLOOD COUNT 3.77 10^6/uL (3.72-5.28); RED CELL DISTRIBUTION WIDTH 13.2 % (11.5-14.0); WHITE BLOOD COUNT 7.3 10^3/uL (4.0-10.5)
[2016-11-25 06:38] LABS: ANION GAP 5 (5-19); BLOOD UREA NITROGEN 11 mg/dL (7-20); CALCIUM 7.5 mg/dL (8.4-10.2); CARBON DIOXIDE 33 mmol/L (22-30); CHLORIDE 106 mmol/L (98-107); GLUCOSE 310 mg/dL (75-110); MAGNESIUM 1.7 mg/dL (1.6-2.3); SODIUM 143.9 mmol/L (137-145)
[2016-11-25] MEDS ORDERED: POTASSI CL 20 MEQ/1/2NS 1L 1,000 ML IV PRN (06:58)
[2016-11-25] MEDS: POTASSI CL 20 MEQ/50 ML RIDER 20 MEQ/50 ML RTUPB IV SCH ×2 (08:52→11:01)
[2016-11-25] MEDS: INSULIN REG, HUMAN 100 UNIT/ML 3 ML VIAL (PYX) SUBCUT PRN ×2 (12:04→17:44)
[2016-11-25] MEDS ORDERED: POTASSIUM CHLORIDE 20 MEQ/15 ML UDCUP PEG ONE (13:00)
[2016-11-25] MEDS ORDERED: MAGNESIUM SULFATE/D5W 1 GM/100 ML RTUPB IV SCH (13:00)
[2016-11-25] MEDS: POTASSIUM CHLORIDE 20 MEQ/15 ML UDCUP PEG SCH (17:10)
--- NOTE | 2016-11-25 17:11 | PDOC PROGRESS REPORT ---
Subjective Progress Note for:: 11/25/16 Subjective:: Reason for visit: Follow-up acute metabolic encephalopathy, hypernatremia, possible UTI Hospital course: Per H&P "BEV URBAN is a 76 year old female resident of skilled nursing who was brought by EMS for fever. History is obtained from the daughter. 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 Daughter states that she has been treated for a UTI for the past few days with Cipro and a cephalosporin. Fever increased today and patient was noted to be tachypneic. She was evaluated initially by the night ER provider Dr. Mandujano and a septic workup was begun as well as IV fluids and IV antibiotics. The daughter is understanding that the patient is seriously ill, and the daughter does confirm that the patient is a DO NOT RESUSCITATE. Upon evaluation in the ED patient was diagnosed urinary tract infection, severe dehydration, hypernatremia She had on 11/13 urine culture and sensitivity positive for Proteus mirabilis sensitive to cefotaxime Patient was subsequently admitted to telemetry unit under hospitalist service for further evaluation and care" She was admitted to the hospital and started on Cefotaxime as noted above, IV fluids and other supportive care and has shown some improvement with the daughter reporting to the physician yesterday she seemed to be close to baseline. Subjective: She is severely demented and nonverbal at baseline, there remains no family in the room at present and therefore review of systems is unobtainable . Nurses report no new events overnight. Since admission she has undergone placement of right internal jugular central catheter for venous access without complication. Her blood and urine cultures come back negative from admission. Physical Exam Vital Signs: Temp Pulse Resp BP Pulse Ox 98.1 F 85 24 H 174/77 H 98 11/25/16 08:00 11/25/16 08:00 11/25/16 08:00 11/25/16 08:00 11/25/16 08:00 Intake & Output 11/24/16 11/25/16 11/26/16 06:59 06:59 06:59 Intake Total 2517 3780 996 Output Total 1500 2940 Balance 1017 840 996 Weight 74.6 kg 75.2 kg EXAM GENERAL: NAD; well developed, well nourished; no obese; alert and opens eyes but is nonverbal and will not follow commands HEENT: normocephalic, atraumatic; no conjunctival injection, no scleral icterus ; oral mucosa dry; RESPIRATORY: no accessory muscle use, no increased WOB, good air entry bilaterally; no wheezes, rales, rhonchi; no inspiratory crackles CARDIO: no JVD; RRR; no systolic murmur; no tachycardia GI: soft; nondistended; normal bowel sounds; no hepato spleno megaly; no rebound, rigidity, guarding; no grimace to palpation; PEG tube in place with insertion site clean dry and intact. Tube feeds running at goal VASCULAR: no carotid bruit; no abdominal bruit; no pallor; 2+ radial, DP pulse ; normal capillary refill EXTREMITIES: no palpable cords in calf; no clubbing, cyanosis, pedal edema PSYCH: normal affect, normal mood SKIN: warm; moist; no petechiae; no telengectasias; no jaundice; no rash Results Laboratory Results: 11/25/16 05:30 11/25/16 05:30 11/25/16 11/25/16 05:30 05:30 WBC 7.3 RBC 3.77 Hgb 11.7 L Hct 34.8 L MCV 92 MCH 31.2 MCHC 33.7 RDW 13.2 Plt Count 144 L Sodium 143.9 Potassium 3.0 L* Chloride 106 Carbon Dioxide 33 H Anion Gap 5 BUN 11 Creatinine 0.30 L Est GFR ( Amer) > 60 Est GFR (Non-Af Amer) > 60 Glucose 310 H Calcium 7.5 L Magnesium 1.7 Labs reviewed. Potassium remains low. Magnesium borderline low. Impressions: Chest X-Ray 11/22/16 04:51 IMPRESSION: NO ACUTE RADIOGRAPHIC FINDING IN THE CHEST. Status: Imported from PACS - Reports reviewed previously Assessment & Plan - Diagnosis (1) Hypernatremia Is this a current diagnosis for this admission?: YesPlan: Resolved with treatment. Patient is G-tube feeding dependent and appeared to be volume depleted on admission with significant hypernatremia contributing to her presentation. This is improved with IV fluids, continuation of G-tube feedings and fluid boluses. Repeat Chem-7 in the morning (2) Acute metabolic encephalopathy Is this a current diagnosis for this admission?: YesPlan: Likely back to baseline. Likely multifactorial with a component of hypernatremia, volume depletion, possible urinary tract infection in the setting of underlying advanced Alzheimer's dementia and chronic nonverbal state. Await daughter's arrival, we'll need to discuss her current status as it relates to her baseline. (3) Sepsis Qualifiers: Sepsis type: sepsis due to unspecified organism Qualified Code(s): A41.9 - Sepsis, unspecified organism Is this a current diagnosis for this admission?: YesPlan: Improved. Likely from the Proteus discovered on urine culture on 11/13/2016. Continue current antibiotics. (4) UTI (urinary tract infection) Qualifiers: Urinary tract infection type: site unspecified Is this a current diagnosis for this admission?: YesPlan: . Complicated Proteus mirabilis UTI. As above. (5) Type II diabetes mellitus, uncontrolled Qualifiers: Diabetes mellitus complication status: with unspecified complications Is this a current diagnosis for this admission?: YesPlan: Continue sliding scale (6) Alzheimer's dementia Is this a current diagnosis for this admission?: YesPlan: Probably back to baseline. (7) DNR (do not resuscitate) Is this a current diagnosis for this admission?: Yes (8) Hypokalemia Is this a current diagnosis for this admission?: YesPlan: Increase regimen and Continue to treat and follow - Time Time Spent with patient: 35 or more minutes Anticipated discharge: SNF Within: within 48 hours
[2016-11-25] MEDS ORDERED: MAGNESIUM SULFATE/D5W 1 GM/100 ML RTUPB IV ONE (18:00)
[2016-11-26] MEDS: CEFTAZIDIME PENTAHYDRATE 1 GM in DEXTROSE 5%-WATER 50 ML IV SCH ×3 (01:41→22:26)
[2016-11-26] MEDS: INSULIN REG, HUMAN 100 UNIT/ML 3 ML VIAL (PYX) SUBCUT PRN ×4 (01:41→17:01)
[2016-11-26 06:52] LABS: ANION GAP 5 (5-19); BLOOD UREA NITROGEN 9 mg/dL (7-20); CALCIUM 7.4 mg/dL (8.4-10.2); CARBON DIOXIDE 32 mmol/L (22-30); CHLORIDE 104 mmol/L (98-107); CREATININE RESULT 0.32 mg/dL (0.52-1.25); GLUCOSE 288 mg/dL (75-110); POTASSIUM 3.7 mmol/L (3.6-5.0); SODIUM 140.5 mmol/L (137-145)
[2016-11-26] MEDS: POTASSIUM CHLORIDE 20 MEQ/15 ML UDCUP PEG SCH ×2 (09:44→17:03)
[2016-11-26] MEDS ORDERED: FUROSEMIDE INJ/PF 20 MG/2 ML SDV IV ONE (10:15)
[2016-11-26] MEDS ORDERED: SCOPOLAMINE HYDROBROMIDE 1.5 MG PATCH.TD72 TD ONE (12:00)
--- NOTE | 2016-11-26 16:28 | PDOC PROGRESS REPORT ---
Subjective Progress Note for:: 11/26/16 Subjective:: Reason for visit: Follow-up acute metabolic encephalopathy, hypernatremia, possible UTI Hospital course: Per H&P "BEV URBAN is a 76 year old female resident of [facility] who was brought by EMS for fever. History is obtained from the daughter. 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 Daughter states that she has been treated for a UTI for the past few days with Cipro and a cephalosporin. Fever increased today and patient was noted to be tachypneic. She was evaluated initially by the night ER provider Dr. Mandujano and a septic workup was begun as well as IV fluids and IV antibiotics. The daughter is understanding that the patient is seriously ill, and the daughter does confirm that the patient is a DO NOT RESUSCITATE. Upon evaluation in the ED patient was diagnosed urinary tract infection, severe dehydration, hypernatremia She had on 11/13 urine culture and sensitivity positive for Proteus mirabilis sensitive to cefotaxime Patient was subsequently admitted to telemetry unit under hospitalist service for further evaluation and care" She was admitted to the hospital and started on Cefotaxime as noted above, IV fluids and other supportive care and has shown some improvement with the daughter reporting to staff she seemed to be close to baseline. Subjective: She is severely demented and nonverbal at baseline, there remains no family in the room at present and therefore review of systems is unobtainable . Nurses report no new events overnight. Since admission she has undergone placement of right internal jugular central catheter for venous access without complication. Her blood and urine cultures have come back negative from admission. ROS: Unobtainable due to mental state Physical Exam Vital Signs: Temp Pulse Resp BP Pulse Ox 97.9 F 108 H 24 H 165/96 H 100 11/26/16 15:26 11/26/16 15:26 11/26/16 15:26 11/26/16 15:26 11/26/16 15:26 Intake & Output 11/25/16 11/26/16 11/27/16 06:59 06:59 06:59 Intake Total 3780 4169 1157 Output Total 2940 4830 Balance 840 -661 1157 Weight 75.2 kg 76.3 kg EXAM GENERAL: NAD; well developed, well nourished; no obese; alert and opens eyes but is nonverbal and will not follow commands though she does vocalize with grunts HEENT: normocephalic, atraumatic; no conjunctival injection, no scleral icterus ; oral mucosa dry; RESPIRATORY: no accessory muscle use, no increased WOB, good air entry bilaterally; no wheezes, rales, rhonchi; interval development of bibasilar inspiratory crackles CARDIO: no JVD; RRR; no systolic murmur; no tachycardia GI: soft; nondistended; normal bowel sounds; no hepato spleno megaly; no rebound, rigidity, guarding; no grimace to palpation; PEG tube in place with insertion site clean dry and intact. Tube feeds running at goal VASCULAR: no carotid bruit; no abdominal bruit; no pallor; 2+ radial, DP pulse ; normal capillary refill EXTREMITIES: no palpable cords in calf; no clubbing, cyanosis, pedal edema SKIN: warm; moist; no petechiae; no telengectasias; no jaundice; no rash Results Laboratory Results: 11/25/16 05:30 11/26/16 05:45 11/26/16 05:45 Sodium 140.5 Potassium 3.7 Chloride 104 Carbon Dioxide 32 H Anion Gap 5 BUN 9 Creatinine 0.32 L Est GFR ( Amer) > 60 Est GFR (Non-Af Amer) > 60 Glucose 288 H Calcium 7.4 L Magnesium 2.0 Labs reviewed, resolution of hypernatremia, resolution of hypokalemia Assessment & Plan - Diagnosis (1) Hypernatremia Is this a current diagnosis for this admission?: YesPlan: Resolved with treatment. Patient is G-tube feeding dependent and appeared to be volume depleted on admission with significant hypernatremia contributing to her presentation. This is improved with IV fluids, continuation of G-tube feedings and fluid boluses. (2) Acute metabolic encephalopathy Is this a current diagnosis for this admission?: YesPlan: Appears to be back to baseline. Likely multifactorial with a component of hypernatremia, volume depletion, probable urinary tract infection in the setting of underlying advanced Alzheimer's dementia and chronic nonverbal state. Await daughter's arrival, we'll need to discuss her current status as it relates to her baseline. (3) Sepsis Qualifiers: Sepsis type: sepsis due to unspecified organism Qualified Code(s): A41.9 - Sepsis, unspecified organism Is this a current diagnosis for this admission?: YesPlan: Resolved. Likely from the Proteus discovered on urine culture on 11/13/2016. Continue current antibiotics. (4) UTI (urinary tract infection) Qualifiers: Urinary tract infection type: site unspecified Is this a current diagnosis for this admission?: YesPlan: Complicated Proteus mirabilis UTI with indwelling Townsend catheter. As above. (5) Type II diabetes mellitus, uncontrolled Qualifiers: Diabetes mellitus complication status: with unspecified complications Is this a current diagnosis for this admission?: YesPlan: Continue sliding scale (6) Alzheimer's dementia Is this a current diagnosis for this admission?: Yes (7) DNR (do not resuscitate) Is this a current diagnosis for this admission?: Yes (8) Hypokalemia Is this a current diagnosis for this admission?: YesPlan: Resolved with Increase regimen (9) Atelectasis of both lungs Is this a current diagnosis for this admission?: YesPlan: IV fluids now on hold. She is requiring 1 L supplemental oxygen to maintain adequate O2 sats. Given dose of IV Lasix to try to liberate some of the third space fluid after treatment of her volume depletion and hypernatremia. She is unable to participate and incentive spirometer flutter valve. If no improvement with the above treatment by morning we'll check a chest x-ray. (10) Accelerated hypertension Is this a current diagnosis for this admission?: YesPlan: Resume Norvasc but at higher dose 10 mg daily first dose now. IV Lasix as noted above. Titrate regimen as needed. - Time Time Spent with patient: 35 or more minutes
[2016-11-26] MEDS ORDERED: AMLODIPINE BESYLATE 10 MG TABLET PEG ONE (17:00)
[2016-11-26] MEDS ORDERED: IPRATROPIUM/ALBUTEROL 0.5-2.5 MG/3 ML AMPUL NEB PRN (21:08)
[2016-11-27] MEDS: INSULIN REG, HUMAN 100 UNIT/ML 3 ML VIAL (PYX) SUBCUT PRN ×2 (00:14→11:19)
[2016-11-27] MEDS: CEFTAZIDIME PENTAHYDRATE 1 GM in DEXTROSE 5%-WATER 50 ML IV SCH (05:52)
[2016-11-27 06:44] LABS: HEMATOCRIT 36.9 % (36.0-47.0); HEMOGLOBIN 12.4 g/dL (12.0-15.5); HGB HCT DIFFERENCE 0.3; MEAN CORPUSCULAR HEMOGLOBIN 30.9 pg (27.0-33.4); MEAN CORPUSCULAR HGB CONC 33.7 g/dL (32.0-36.0); MEAN CORPUSCULAR VOLUME 92 fl (80-97); RED BLOOD COUNT 4.03 10^6/uL (3.72-5.28); RED CELL DISTRIBUTION WIDTH 13.9 % (11.5-14.0); WHITE BLOOD COUNT 7.4 10^3/uL (4.0-10.5)
[2016-11-27 06:53] LABS: ANION GAP 6 (5-19); BLOOD UREA NITROGEN 14 mg/dL (7-20); CALCIUM 8.4 mg/dL (8.4-10.2); CARBON DIOXIDE 31 mmol/L (22-30); CHLORIDE 105 mmol/L (98-107); CREATININE RESULT 0.35 mg/dL (0.52-1.25); GLUCOSE 351 mg/dL (75-110); POTASSIUM 4.4 mmol/L (3.6-5.0); SODIUM 141.7 mmol/L (137-145)
[2016-11-27 07:13] LABS: BASOPHILS % (MANUAL) 0 % (0-2); EOSINOPHILS % (MANUAL) 2 % (0-6); LYMPHOCYTES % (MANUAL) 24 % (13-45); TOTAL CELLS COUNTED 100
[2016-11-27 07:14] LABS: RBC MORPHOLOGY COMMENT NORMO-CYTIC/CHROMIC; TOXIC VACUOLATION PRESENT
[2016-11-27] MEDS: POTASSIUM CHLORIDE 20 MEQ/15 ML UDCUP PEG SCH (11:18)
[2016-11-27] MEDS: AMLODIPINE BESYLATE 10 MG TABLET PEG SCH (11:18)
[2016-11-27 12:36] VITALS: BP 156/86
[2016-11-27] MEDS ORDERED: LORAZEPAM INJ 2 MG/1 ML VIAL IV PRN (12:59)
[2016-11-27] MEDS ORDERED: SCOPOLAMINE HYDROBROMIDE 1.5 MG PATCH.TD72 TD ONE ×2 (13:30→14:00)
--- NOTE | 2016-11-27 14:00 | PDOC PROGRESS REPORT ---
Subjective Progress Note for:: 11/27/16 Subjective:: Reason for visit: Follow-up acute metabolic encephalopathy, hypernatremia, possible UTI Hospital course: Per H&P "BEV URBAN is a 76 year old female resident of [facility] who was brought by EMS for fever. History is obtained from the daughter. 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 Daughter states that she has been treated for a UTI for the past few days with Cipro and a cephalosporin. Fever increased today and patient was noted to be tachypneic. She was evaluated initially by the night ER provider Dr. Mandujano and a septic workup was begun as well as IV fluids and IV antibiotics. The daughter is understanding that the patient is seriously ill, and the daughter does confirm that the patient is a DO NOT RESUSCITATE. Upon evaluation in the ED patient was diagnosed urinary tract infection, severe dehydration, hypernatremia She had on 11/13 urine culture and sensitivity positive for Proteus mirabilis sensitive to cefotaxime Patient was subsequently admitted to telemetry unit under hospitalist service for further evaluation and care" She was admitted to the hospital and started on Cefotaxime as noted above, IV fluids and other supportive care and initially showed some improvement with the daughter reporting she seemed to be back to baseline. In fact she had improved to the point I thought we could get her transferred back to the facility where she lives. I had discussed with the daughter at length last night that her condition and probably deteriorated to this level and likely would never improved beyond this. She indicated consideration for comfort measures and intended to discuss with the facility staff not returning to the hospital for the next acute event and treat her at the facility instead. Unfortunately she has taken a turn for the worse this morning, her breathing is becoming ragged, irregular, shallow with persistent heavy secretions. It is my opinion that she appears to be actively dying as a direct result of advanced and progressive Alzheimer's dementia. I again spoke with her daughter who is arrived at the bedside and they have elected to pursue comfort measures while here in the hospital. I do not think she would survive transfer to the facility at this time. Subjective: Patient is significantly deteriorated with Kussmaul breathing. She remains obtunded and unresponsive. ROS: Unobtainable due to mental state Physical Exam Vital Signs: Temp Pulse Resp BP Pulse Ox 98.4 F 111 H 20 156/86 H 98 11/27/16 11:22 11/27/16 11:22 11/27/16 11:22 11/27/16 11:22 11/27/16 11:22 Intake & Output 11/26/16 11/27/16 11/28/16 06:59 06:59 06:59 Intake Total 4169 3224 Output Total 4830 2400 Balance -661 824 Weight 76.3 kg 73.6 kg EXAM GENERAL: Mild respiratory distress; well developed; no obese; opens eyes but is nonverbal and will not follow commands HEENT: normocephalic, atraumatic; no conjunctival injection, no scleral icterus ; oral mucosa dry; heavy upper airway secretions RESPIRATORY: Ragged, irregular, shallow respiratory rate; good air entry bilaterally; no wheezes, rales, rhonchi; minimal bibasilar inspiratory crackles CARDIO: no JVD; RRR; no systolic murmur; no tachycardia GI: soft; nondistended; normal bowel sounds; no hepato spleno megaly; no rebound, rigidity, guarding; no grimace to palpation; PEG tube in place with insertion site clean dry and intact. Tube feeds running at goal VASCULAR: no carotid bruit; no abdominal bruit; no pallor; 2+ radial, DP pulse ; normal capillary refill EXTREMITIES: no palpable cords in calf; no clubbing, cyanosis, nonpitting pedal edema SKIN: warm; moist; no petechiae; no telengectasias; no jaundice; no rash Results Laboratory Results: 11/27/16 06:00 11/27/16 06:00 11/27/16 11/27/16 06:00 06:00 WBC 7.4 RBC 4.03 Hgb 12.4 Hct 36.9 MCV 92 MCH 30.9 MCHC 33.7 RDW 13.9 Plt Count 148 L Seg Neutrophils % Not Reportable Lymphocytes % Not Reportable Monocytes % Not Reportable Eosinophils % Not Reportable Basophils % Not Reportable Absolute Neutrophils Not Reportable Absolute Lymphocytes Not Reportable Absolute Monocytes Not Reportable Absolute Eosinophils Not Reportable Absolute Basophils Not Reportable Sodium 141.7 Potassium 4.4 Chloride 105 Carbon Dioxide 31 H Anion Gap 6 BUN 14 Creatinine 0.35 L Est GFR ( Amer) > 60 Est GFR (Non-Af Amer) > 60 Glucose 351 H Calcium 8.4 Labs reviewed, metabolic alkalosis noted, electrolytes have normalized. Assessment & Plan - Diagnosis (1) DNR (do not resuscitate) Is this a current diagnosis for this admission?: YesPlan: Per the family's wishes will change to comfort measures only. Discussed with nurse at the bedside. Appropriate orders placed in the chart. (2) Alzheimer's dementia Is this a current diagnosis for this admission?: YesPlan: Appears to be actively dying. (3) Hypernatremia Is this a current diagnosis for this admission?: YesPlan: Resolved with treatment. Patient is G-tube feeding dependent and appeared to be volume depleted on admission with significant hypernatremia contributing to her presentation. (4) Acute metabolic encephalopathy Is this a current diagnosis for this admission?: YesPlan: Worsened today. Likely multifactorial with a component of hypernatremia, volume depletion, probable urinary tract infection in the setting of underlying advanced Alzheimer's dementia and chronic nonverbal state. (5) Sepsis Qualifiers: Sepsis type: sepsis due to unspecified organism Qualified Code(s): A41.9 - Sepsis, unspecified organism Is this a current diagnosis for this admission?: YesPlan: Resolved. Likely from the Proteus discovered on urine culture on 11/13/2016. Discontinue current antibiotics. (6) UTI (urinary tract infection) Qualifiers: Urinary tract infection type: site unspecified Is this a current diagnosis for this admission?: YesPlan: Complicated Proteus mirabilis UTI. As above. (7) Type II diabetes mellitus, uncontrolled Qualifiers: Diabetes mellitus complication status: with unspecified complications Is this a current diagnosis for this admission?: YesPlan: Discontinue sliding scale (8) Hypokalemia Is this a current diagnosis for this admission?: YesPlan: Resolved with Increased regimen (9) Atelectasis of both lungs Is this a current diagnosis for this admission?: YesPlan: Supplemental O2 as needed (10) Accelerated hypertension Is this a current diagnosis for this admission?: Yes - Time Time Spent with patient: 35 or more minutes
[2016-11-27] MEDS: NORMAL SALINE INJ/PF 0.9% 10 ML SDV IV PRN (23:07)
[2016-11-28] MEDS: AMLODIPINE BESYLATE 10 MG TABLET PEG SCH (11:48)
--- NOTE | 2016-11-28 12:26 | PDOC PROGRESS REPORT ---
Subjective Progress Note for:: 11/28/16 Subjective:: Reason for visit: Follow-up acute metabolic encephalopathy, hypernatremia, possible UTI Hospital course: Per H&P "BEV URBAN is a 76 [facility] female resident [facility] who was brought by EMS for fever. History is obtained from the daughter. 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 Daughter states that she has been treated for a UTI for the past few days with Cipro and a cephalosporin. Fever increased today and patient was noted to be tachypneic. She was evaluated initially by the night ER provider Dr. Mandujano and a septic workup was begun as well as IV fluids and IV antibiotics. The daughter is understanding that the patient is seriously ill, and the daughter does confirm that the patient is a DO NOT RESUSCITATE. Upon evaluation in the ED patient was diagnosed urinary tract infection, severe dehydration, hypernatremia She had on 11/13 urine culture and sensitivity positive for Proteus mirabilis sensitive to cefotaxime Patient was subsequently admitted to telemetry unit under hospitalist service for further evaluation and care" She was admitted to the hospital and started on Cefotaxime as noted above, IV fluids and other supportive care and initially showed some improvement with the daughter reporting she seemed to be back to baseline. In fact she had improved to the point I thought we could get her transferred back to the facility where she lives. I had discussed with the daughter at length last night that her condition and probably deteriorated to this level and likely would never improved beyond this. She indicated consideration for comfort measures and intended to discuss with the facility staff not returning to the hospital for the next acute event and treat her at the facility instead. Unfortunately she has taken a turn for the worse, her breathing is becoming ragged, irregular, shallow with persistent heavy secretions. It is my opinion that she appears to be actively dying as a direct result of advanced and progressive Alzheimer's dementia. I again spoke with her daughter who is arrived at the bedside and they have elected to pursue comfort measures while here in the hospital. I do not think she would survive transfer to the facility at this time. Subjective: Nursing reports episodic tachypnea last night with long pauses of 20 -30 seconds and less responsive than before. She remains obtunded and unresponsive for me this morning. Family at the bedside and states she appears comfortable but less responsive even to their voices and touch. They state they are satisfied with care she is receiving. ROS: Unobtainable due to mental state Physical Exam Vital Signs: Temp Pulse Resp BP Pulse Ox 98.4 F 105 H 20 156/86 H 95 11/27/16 11:22 11/27/16 18:10 11/27/16 18:10 11/27/16 11:22 11/27/16 18:10 Intake & Output 11/27/16 11/28/16 11/29/16 06:59 06:59 06:59 Intake Total 3224 0 394 Output Total 2400 1100 Balance 824 -1100 394 Weight 73.6 kg EXAM GENERAL: Moderate respiratory distress with respiratory rate closer to 30 for me ; well developed; no obese; no longer opens eyes to verbal or tactile stimuli HEENT: normocephalic, atraumatic; no conjunctival injection, no scleral icterus ; oral mucosa dry; improved heavy upper airway secretions with scopolamine patch RESPIRATORY: Ragged, irregular, shallow rapid respiratory rate; good air entry bilaterally; no wheezes, rales, rhonchi; minimal bibasilar inspiratory crackles CARDIO: no JVD; RRR; no systolic murmur; no tachycardia GI: soft; nondistended; diminished bowel sounds; no grimace to palpation; PEG tube in place with insertion site clean dry and intact. Tube feeds running at goal VASCULAR: no carotid bruit; no abdominal bruit; no pallor; 2+ radial, DP pulse ; normal capillary refill EXTREMITIES: no palpable cords in calf; no clubbing, cyanosis, nonpitting pedal edema SKIN: warm; diaphoretic; no petechiae; no telengectasias; no jaundice; no rash Assessment & Plan - Diagnosis (1) DNR (do not resuscitate) Is this a current diagnosis for this admission?: Yes (2) Alzheimer's dementia Is this a current diagnosis for this admission?: YesPlan: Appears to be actively dying. Respiratory rate increased, responsiveness decreased. Discussed with the nursing staff that it's okay to use morphine for respiratory distress including tachypnea. Discussed with the family as well as they are in agreement reiterating their desire for comfort measures only at this point. (3) Hypernatremia Is this a current diagnosis for this admission?: Yes (4) Acute metabolic encephalopathy Is this a current diagnosis for this admission?: Yes (5) Sepsis Qualifiers: Sepsis type: sepsis due to unspecified organism Qualified Code(s): A41.9 - Sepsis, unspecified organism Is this a current diagnosis for this admission?: Yes (6) UTI (urinary tract infection) Qualifiers: Urinary tract infection type: site unspecified Is this a current diagnosis for this admission?: Yes (7) Type II diabetes mellitus, uncontrolled Qualifiers: Diabetes mellitus complication status: with unspecified complications Is this a current diagnosis for this admission?: Yes (8) Hypokalemia Is this a current diagnosis for this admission?: Yes (9) Atelectasis of both lungs Is this a current diagnosis for this admission?: Yes (10) Accelerated hypertension Is this a current diagnosis for this admission?: Yes - Time Time Spent with patient: 15-24 minutes - Plan Summary Plan Summary: Continue to manage her symptoms here and if she survives the weekend in the Wednesday then we will make arrangements for transfer back to the [facility] facility for ongoing end-of-life care.
[2016-11-28] MEDS: MORPHINE SULFATE 10 MG/ML INJ IV PRN (21:22)
[2016-11-29] MEDS: MORPHINE SULFATE 10 MG/ML INJ IV PRN ×5 (01:12→22:40)
[2016-11-29] MEDS: AMLODIPINE BESYLATE 10 MG TABLET PEG SCH (09:26)
[2016-11-29] MEDS ORDERED: ACETAMINOPHEN 650 MG SUPP.RECT PR PRN (15:17)
--- NOTE | 2016-11-29 15:19 | PDOC PROGRESS REPORT ---
Subjective Progress Note for:: 11/29/16 Subjective:: Reason for visit: Follow-up acute metabolic encephalopathy, hypernatremia, possible UTI Hospital course: Per H&P "BEV URBAN is a 76 year old female resident [facility] who was brought by EMS for fever. History is obtained from the daughter. 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 Daughter states that she has been treated for a UTI for the past few days with Cipro and a cephalosporin. Fever increased today and patient was noted to be tachypneic. She was evaluated initially by the night ER provider Dr. Mandujano and a septic workup was begun as well as IV fluids and IV antibiotics. The daughter is understanding that the patient is seriously ill, and the daughter does confirm that the patient is a DO NOT RESUSCITATE. Upon evaluation in the ED patient was diagnosed urinary tract infection, severe dehydration, hypernatremia She had on 11/13 urine culture and sensitivity positive for Proteus mirabilis sensitive to cefotaxime Patient was subsequently admitted to telemetry unit under hospitalist service for further evaluation and care" She was admitted to the hospital and started on Cefotaxime as noted above, IV fluids and other supportive care and initially showed some improvement with the daughter reporting she seemed to be back to baseline. In fact she had improved to the point I thought we could get her transferred back to the facility where she lives. I had discussed with the daughter at length last night that her condition and probably deteriorated to this level and likely would never improved beyond this. She indicated consideration for comfort measures and intended to discuss with the facility staff not returning to the hospital for the next acute event and treat her at the facility instead. Unfortunately she has taken a turn for the worse, her breathing is becoming ragged, irregular, shallow with persistent heavy secretions. It is my opinion that she appears to be actively dying as a direct result of advanced and progressive Alzheimer's dementia. I again spoke with her daughter who is arrived at the bedside and they have elected to pursue comfort measures while here in the hospital. I do not think she would survive transfer to the facility at this time. Subjective: Nursing reports episodic tachypnea with long pauses of 20-30 seconds and less responsive than before. She remains obtunded and unresponsive for me this morning. Family at the bedside and states she appears comfortable but less responsive even to their voices and touch. They state they are satisfied with care she is receiving. ROS: Unobtainable due to mental state Physical Exam Vital Signs: Temp Pulse Resp BP Pulse Ox 98.4 F 105 H 20 156/86 H 95 11/27/16 11:22 11/27/16 18:10 11/27/16 18:10 11/27/16 11:22 11/27/16 18:10 Intake & Output 11/28/16 11/29/16 11/30/16 06:59 06:59 06:59 Intake Total 0 1731 Output Total 1100 700 Balance -1100 1031 Weight 73.6 kg EXAM GENERAL: Moderate respiratory distress with respiratory rate closer to 30 for me ; well developed; no obese; no longer opens eyes to verbal or tactile stimuli HEENT: normocephalic, atraumatic; no conjunctival injection, no scleral icterus ; oral mucosa dry; improved heavy upper airway secretions with scopolamine patch RESPIRATORY: Ragged, irregular, shallow rapid respiratory rate; good air entry bilaterally; no wheezes, rales, rhonchi; no breath sounds at the left base rales to the left apex CARDIO: no JVD; RRR; no systolic murmur; no tachycardia GI: soft; nondistended; diminished bowel sounds; no grimace to palpation; PEG tube in place with insertion site clean dry and intact. Tube feeds running at goal VASCULAR: no carotid bruit; no abdominal bruit; no pallor; 2+ radial, DP pulse ; normal capillary refill EXTREMITIES: no palpable cords in calf; no clubbing, cyanosis, nonpitting pedal edema SKIN: warm; diaphoretic; no petechiae; no telengectasias; no jaundice; no rash Assessment & Plan - Diagnosis (1) DNR (do not resuscitate) Is this a current diagnosis for this admission?: Yes (2) Alzheimer's dementia Is this a current diagnosis for this admission?: Yes (3) Hypernatremia Is this a current diagnosis for this admission?: Yes (4) Acute metabolic encephalopathy Is this a current diagnosis for this admission?: Yes (5) Sepsis Qualifiers: Sepsis type: sepsis due to unspecified organism Qualified Code(s): A41.9 - Sepsis, unspecified organism Is this a current diagnosis for this admission?: Yes (6) UTI (urinary tract infection) Qualifiers: Urinary tract infection type: site unspecified Is this a current diagnosis for this admission?: Yes (7) Type II diabetes mellitus, uncontrolled Qualifiers: Diabetes mellitus complication status: with unspecified complications Is this a current diagnosis for this admission?: Yes (8) Hypokalemia Is this a current diagnosis for this admission?: Yes (9) Atelectasis of both lungs Is this a current diagnosis for this admission?: Yes (10) Accelerated hypertension Is this a current diagnosis for this admission?: Yes - Time Time Spent with patient: 15-24 minutes - Plan Summary Plan Summary: Family seems satisfied with the care she is receiving and believes her to be comfortable. I do believe she is in a slow process of dying in his respiratory status has declined further again today. I suspect her demise is eminent.
[2016-11-30] MEDS ORDERED: SCOPOLAMINE HYDROBROMIDE 1.5 MG PATCH.TD72 TD SCH (10:00)
[2016-11-30] MEDS: AMLODIPINE BESYLATE 10 MG TABLET PEG SCH (10:56)
--- NOTE | 2016-11-30 14:48 | PDOC PROGRESS REPORT ---
Subjective Progress Note for:: 11/30/16 Subjective:: Reason for visit: Follow-up acute metabolic encephalopathy, hypernatremia, possible UTI, end-of-life care Hospital course: Per H&P "BEV URBAN is a 76 year old female resident of [facility] who was brought by EMS for fever. History is obtained from the daughter. 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 Daughter states that she has been treated for a UTI for the past few days with Cipro and a cephalosporin. Fever increased today and patient was noted to be tachypneic. She was evaluated initially by the night ER provider Dr. Mandujano and a septic workup was begun as well as IV fluids and IV antibiotics. The daughter is understanding that the patient is seriously ill, and the daughter does confirm that the patient is a DO NOT RESUSCITATE. Upon evaluation in the ED patient was diagnosed urinary tract infection, severe dehydration, hypernatremia She had on 11/13 urine culture and sensitivity positive for Proteus mirabilis sensitive to cefotaxime Patient was subsequently admitted to telemetry unit under hospitalist service for further evaluation and care" She was admitted to the hospital and started on Cefotaxime as noted above, IV fluids and other supportive care and initially showed some improvement with the daughter reporting she seemed to be back to baseline. In fact she had improved to the point I thought we could get her transferred back to the facility where she lives. I had discussed with the daughter at length last night that her condition hadprobably deteriorated to this level and likely would never improve beyond this point again. She indicated consideration for comfort measures and intended to discuss with the facility staff about not returning to the hospital for the next acute event and treat her at the facility instead. Unfortunately she took an interval turn for the worse, her breathing became ragged, irregular, shallow with persistent heavy secretions. It is my opinion that she appears to be actively dying as a direct result of advanced and progressive Alzheimer's dementia. I again spoke with her daughter who is arrived at the bedside and they have elected to pursue comfort measures while here in the hospital. I do not think she would survive transfer to the facility at this time. Subjective: Nursing reports episodic tachypnea with long pauses of 20-30 seconds and less responsive than before. She remains obtunded and unresponsive for me this morning. Family at the bedside and states she appears comfortable but less responsive even to their voices and touch. They state they are satisfied with care she is receiving. She is barely maintaining consistent oxygen saturations greater than 88% for me at the bedside. ROS: Unobtainable due to mental state Physical Exam Vital Signs: Temp Pulse Resp BP Pulse Ox 98.4 F 105 H 20 156/86 H 95 11/27/16 11:22 11/27/16 18:10 11/27/16 18:10 11/27/16 11:22 11/27/16 18:10 Intake & Output 11/29/16 11/30/16 12/01/16 06:59 06:59 06:59 Intake Total 1731 1363 557 Output Total 700 1450 900 Balance 1031 87 -265 Weight 73.6 kg EXAM GENERAL: Unresponsive; Moderate respiratory distress with rapid shallow breathing and respiratory rate closer to 30 for me; well developed; no obese; no longer opens eyes to verbal or tactile stimuli HEENT: normocephalic, atraumatic; oral mucosa dry; improved heavy upper airway secretions with scopolamine patch RESPIRATORY: Ragged, irregular, shallow rapid respiratory rate; no wheezes, rales, rhonchi; no breath sounds at the left base rales to the left apex, rales throughout the right CARDIO: no JVD; RRR; no systolic murmur; no tachycardia GI: soft; nondistended; diminished bowel sounds; no grimace to palpation; PEG tube in place with insertion site clean dry and intact. Tube feeds running at goal VASCULAR: no carotid bruit; no abdominal bruit; no pallor; 2+ radial, DP pulse ; normal capillary refill EXTREMITIES: no palpable cords in calf; no clubbing, cyanosis, nonpitting pedal edema SKIN: warm; diaphoretic; no petechiae; no telengectasias; no jaundice; no rash Results Laboratory Results: 11/27/16 06:00 11/27/16 06:00 Impressions: Chest X-Ray 11/22/16 04:51 IMPRESSION: NO ACUTE RADIOGRAPHIC FINDING IN THE CHEST. Assessment & Plan - Diagnosis (1) DNR (do not resuscitate) Is this a current diagnosis for this admission?: YesPlan: Per the family's wishes will change to comfort measures only. Discussed with nurse at the bedside. Appropriate orders placed in the chart. (2) Alzheimer's dementia Is this a current diagnosis for this admission?: YesPlan: Appears to be actively dying. Respiratory rate increased, responsiveness decreased. Discussed with the nursing staff that it's okay to use morphine for respiratory distress including tachypnea. Discussed with the family as well as they are in agreement reiterating their desire for comfort measures only at this point. (3) Hypernatremia Is this a current diagnosis for this admission?: Yes (4) Acute metabolic encephalopathy Is this a current diagnosis for this admission?: Yes (5) Sepsis Qualifiers: Sepsis type: sepsis due to unspecified organism Qualified Code(s): A41.9 - Sepsis, unspecified organism Is this a current diagnosis for this admission?: Yes (6) UTI (urinary tract infection) Qualifiers: Urinary tract infection type: site unspecified Is this a current diagnosis for this admission?: Yes (7) Type II diabetes mellitus, uncontrolled Qualifiers: Diabetes mellitus complication status: with unspecified complications Is this a current diagnosis for this admission?: Yes (8) Hypokalemia Is this a current diagnosis for this admission?: Yes (9) Atelectasis of both lungs Is this a current diagnosis for this admission?: Yes (10) Accelerated hypertension Is this a current diagnosis for this admission?: Yes - Time Time Spent with patient: 25-34 minutes - Over half the time spent in consultation with the family at the bedside - Plan Summary Plan Summary: She continues her slow steady decline, I anticipate her eminent demise in the next 24 hours.
[2016-11-30] MEDS: MORPHINE SULFATE 10 MG/ML INJ IV PRN ×2 (17:25→21:50)
[2016-11-30] MEDS: NORMAL SALINE INJ/PF 0.9% 10 ML SDV IV PRN (17:26)
--- NOTE | 2016-12-12 16:32 | Death Summary ---
Summary Date : 11/30/16 Time of :: 23:35 Autopsy: No Resuscitation Status: Comfort Measures Only Primary Care Provider: dr fisher - Final Diagnosis (1) Alzheimer's dementia Is this a current diagnosis for this admission?: Yes (2) DNR (do not resuscitate) Is this a current diagnosis for this admission?: Yes (3) Hypernatremia Is this a current diagnosis for this admission?: Yes (4) Acute metabolic encephalopathy Is this a current diagnosis for this admission?: Yes (5) Sepsis Is this a current diagnosis for this admission?: Yes (6) UTI (urinary tract infection) Is this a current diagnosis for this admission?: Yes (7) Type II diabetes mellitus, uncontrolled Is this a current diagnosis for this admission?: Yes (8) Hypokalemia Is this a current diagnosis for this admission?: Yes (9) Atelectasis of both lungs Is this a current diagnosis for this admission?: Yes (10) Accelerated hypertension Is this a current diagnosis for this admission?: Yes Hospital Course:: Hospital course: Per H&P "BEV URBAN is a 76 year old female resident of [facility] who was brought by EMS for fever. History is obtained from the daughter. 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 Daughter states that she has been treated for a UTI for the past few days with Cipro and a cephalosporin. Fever increased today and patient was noted to be tachypneic. She was evaluated initially by the night ER provider Dr. Mandujano and a septic workup was begun as well as IV fluids and IV antibiotics. The daughter is understanding that the patient is seriously ill, and the daughter does confirm that the patient is a DO NOT RESUSCITATE. Upon evaluation in the ED patient was diagnosed urinary tract infection, severe dehydration, hypernatremia She had on 11/13 urine culture and sensitivity positive for Proteus mirabilis sensitive to cefotaxime Patient was subsequently admitted to telemetry unit under hospitalist service for further evaluation and care" She was admitted to the hospital and started on Cefotaxime as noted above, IV fluids and other supportive care and initially showed some improvement with the daughter reporting she seemed to be back to baseline. In fact she had improved to the point I thought we could get her transferred back to the facility where she lives. I had discussed with the daughter at length last night that her condition hadprobably deteriorated to this level and likely would never improve beyond this point again. She indicated consideration for comfort measures and intended to discuss with the facility staff about not returning to the hospital for the next acute event and treat her at the facility instead. Unfortunately she took an interval turn for the worse, her breathing became ragged, irregular, shallow with persistent heavy secretions. It is my opinion that she appears to be actively dying as a direct result of advanced and progressive Alzheimer's dementia. I again spoke with her daughter who is arrived at the bedside and they have elected to pursue comfort measures while here in the hospital. I do not think she would survive transfer to the facility at this time. Her condition continued to decline, she became less and less responsive, and more and more tachypneic ultimately succumbing to the advanced Alzheimer's dementia. Family was at the bedside.
== END 2016-12-01 02:00 | DRG 871 ==
LOC: ER 04:18 → EH 08:23 → UNDOADMIN 08:30 → EH 08:30 → 4N 13:11
PROVIDERS: ADMIT Emergency Medicine; ATTEND Emergency Medicine
PROC: 02H633Z Insertion of Infusion Device into Right Atrium, Percutaneous Approach (ICD-10-PCS; principal; 2016-11-22)
PROC: B244ZZZ Ultrasonography of Right Heart (ICD-10-PCS; 2016-11-22)
DX: A41.9 Sepsis, unspecified organism (principal); G93.41 Metabolic encephalopathy; Z66 Do not resuscitate; N39.0 Urinary tract infection, site not specified; E87.0 Hyperosmolality and hypernatremia; J98.11 Atelectasis; E86.0 Dehydration; B96.4 Proteus (mirabilis) (morganii) as the cause of diseases classified elsewhere; G30.9 Alzheimer's disease, unspecified; F02.80 Dementia in other diseases classified elsewhere, unspecified severity, without behavioral disturbance, psychotic disturbance, mood disturbance, and anxiety; E11.8 Type 2 diabetes mellitus with unspecified complications; E87.6 Hypokalemia; I10 Essential (primary) hypertension; I25.10 Atherosclerotic heart disease of native coronary artery without angina pectoris; E78.5 Hyperlipidemia, unspecified; Z95.1 Presence of aortocoronary bypass graft; Z79.82 Long term (current) use of aspirin; Z79.84 Long term (current) use of oral hypoglycemic drugs; Z79.899 Other long term (current) drug therapy; Z88.0 Allergy status to penicillin
CPT/HCPCS: 36415; 71010; 80048; 80053; 81001; 82550; 82553; 82803; 82962; 83036; 83605; 83735; 84443; 84484; 85025; 85027; 85610; 87040; 87086; 87804; 93005; 93010; 94640; 96365; 99285; C1751; C1769; J0713; J1642; J1815; J1940; J1956; J2270; J3475; J3480; J3490; J7030; J7620; S0164